=== PATIENT | female | born 1955 | race Caucasian/White ===

== ENCOUNTER → 2016-08-23 | Outpatient (CLI) | payer OTHER ==
[2016-08-23 18:07] LABS: FSH 50.6 mIU/mL (()); TESTOSTERONE* 268 ng/dL (3-41)
== END ==
LOC: LABMALL 07:28
PROVIDERS: Obstetrics & Gynecology
DX: Z00.00 Encounter for general adult medical examination without abnormal findings (principal)

== ENCOUNTER → 2017-01-23 | Outpatient (CLI) | payer OTHER | LOC: RAD 13:07 | DX: M79.672 Pain in left foot (principal) ==

== ENCOUNTER → 2017-07-05 | Outpatient (CLI) | payer OTHER | LOC: RAD 11:36 | DX: Z12.31 Encounter for screening mammogram for malignant neoplasm of breast (principal) ==